=== PATIENT | female | born 1990 | race Caucasian/White ===

== ENCOUNTER 2016-10-19 10:38 | Emergency (ER) | payer OTHER ==
[2016-10-19] MEDS ORDERED: SODIUM CHLORIDE 0.9% 500 ML IV STA (11:12)
--- NOTE | 2016-10-19 11:29 | ED ---
General Adult HPI - General Chief complaint: Syncope Stated complaint: NUMBNESS, FALL, NEAR SYNCOPE 13 WKS PREG Time Seen by Provider: 10/19/16 11:11 Source: patient, RN notes reviewed Mode of arrival: wheelchair Limitations: no limitations - History of Present Illness Initial comments: This a 25 year old female presents emergency department for near syncopal episode. Patient states that she was at work became very hot flushed feeling states that she some television and fell back. Patient states she did not have any loss conscious did not have a head injury. Patient states she sat down and started feel better. Patient states she is concerned as this has happened twice in the last week only when she is at work. She states she does not drink much fluids. Patient is 13 weeks denies any abdominal pain including nausea, vomiting diarrhea constipation. Denies any vaginal bleeding or vaginal discharge. Patient states she has no complaints at this time denies any headache, blurred vision or any dizziness currently. - Related Data Home Medications Medication Instructions Recorded Confirmed Xle-Ybix-Usrdc Acid 1 cap PO HS 10/19/16 10/19/16 [-U Capsule (formulary)] Allergies Allergy/AdvReac Type Severity Reaction Status Date / Time Sulfa (Sulfonamide Allergy Rash/Hives Verified 10/19/16 11:14 Antibiotics) Review of Systems ROS Statement: Those systems with pertinent positive or pertinent negative responses have been documented in the HPI. ROS Other: All systems not noted in ROS Statement are negative. 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 Absent: scleral icterus, conjunctival injection, periorbital swelling ENT exam: Present: normal exam, normal oropharynx, mucous membranes moist Neck exam: Present: normal inspection, full ROM. Absent: tenderness, meningismus, lymphadenopathy Respiratory exam: Present: normal lung sounds bilaterally. Absent: respiratory distress, wheezes, rales, rhonchi, stridor Cardiovascular Exam: Present: regular rate, normal rhythm, normal heart sounds. Absent: systolic murmur, diastolic murmur, rubs, gallop, clicks GI/Abdominal exam: Present: soft, normal bowel sounds. Absent: distended, tenderness, guarding, rebound, rigid Neurological exam: Present: alert, oriented X3, CN II-XII intact Skin exam: Present: warm, dry, intact, normal color. Absent: rash Course Vital Signs 10/19/16 10:43 Temperature 99.6 F Pulse Rate 84 Respiratory 20 Rate Blood Pressure 133/62 O2 Sat by Pulse 100 Oximetry EKG Findings - EKG Comments: EKG Findings:: EKG performed at 11:27 normal sinus rhythm with a rate of 82 LA interval 140 QRS duration 82 QT/QTc 366/427 Medical Decision Making - Medical Decision Making 25-year-old female presented for near syncopal episode. Patient's blood work within normal limits there is some evidence of ketonuria and patient was given IV fluids. She states she does feel improved at this time. Patient will follow -up with her primary care physician and [employer] as directed. - Lab Data Result diagrams: 10/19/16 12:06 10/19/16 12:00 Lab Results 10/19/16 10/19/16 10/19/16 Range/Units 12:00 12:01 12:06 WBC 6.9 (3.8-10.6) k/uL RBC 4.00 (3.80-5.40) m/uL Hgb 12.4 (11.4-16.0) gm/dL Hct 36.4 (34.0-46.0) % MCV 90.9 (80.0-100.0) fL MCH 30.9 (25.0-35.0) pg MCHC 34.0 (31.0-37.0) g/dL RDW 12.9 (11.5-15.5) % Plt Count 192 (150-450) k/uL Neutrophils % 79 % Lymphocytes % 16 % Monocytes % 3 % Eosinophils % 0 % Basophils % 0 % Neutrophils # 5.5 (1.3-7.7) k/uL Lymphocytes # 1.1 (1.0-4.8) k/uL Monocytes # 0.2 (0-1.0) k/uL Eosinophils # 0.0 (0-0.7) k/uL Basophils # 0.0 (0-0.2) k/uL Sodium 139 (137-145) mmol/L Potassium 4.0 (3.5-5.1) mmol/L Chloride 104 (98-107) mmol/L Carbon Dioxide 22 (22-30) mmol/L Anion Gap 13 mmol/L BUN 9 (7-17) mg/dL Creatinine 0.52 (0.52-1.04) mg/dL Est GFR (MDRD) Af Amer >60 (>60 ml/min/1.73 sqM) Est GFR (MDRD) Non-Af >60 (>60 ml/min/1.73 sqM) Glucose 98 (74-99) mg/dL Calcium 9.8 (8.4-10.2) mg/dL Total Bilirubin 0.9 (0.2-1.3) mg/dL AST 32 (14-36) U/L ALT 44 (9-52) U/L Alkaline Phosphatase 35 L (38-126) U/L Total Protein 7.7 (6.3-8.2) g/dL Albumin 4.4 (3.5-5.0) g/dL Urine Color Light Yellow Urine Appearance Clear (Clear) Urine pH 6.0 (5.0-8.0) Ur Specific Hughson 1.010 (1.001-1.035) Urine Protein Negative (Negative) Urine Glucose (UA) 1+ H (Negative) Urine Ketones 2+ H (Negative) Urine Blood Negative (Negative) Urine Nitrite Negative (Negative) Urine Bilirubin Negative (Negative) Urine Urobilinogen <2.0 (<2.0) mg/dL Ur Leukocyte Esterase Negative (Negative) Disposition Clinical Impression: Near syncope, Dehydration Disposition: HOME SELF-CARE Condition: Stable Instructions: Near Syncope (ED) Additional Instructions: Please return to the Emergency Department if symptoms worsen or any other concerns. Time of Disposition: 13:01
[2016-10-19 12:26] LABS: Basophils % (A) 0 %; CH 31.1; CHCM 34.4; Eosinophils % (A) 0 %; HCT 36.4 % (34.0-46.0); HDW 2.65; HGB 12.4 gm/dL (11.4-16.0); Luc # (Auto) 0.07; Luc % (Auto) 1; Lymphocytes # (A) 1.1 k/uL (1.0-4.8); Lymphocytes % (A) 16 %; MCH 30.9 pg (25.0-35.0); MCV 90.9 fL (80.0-100.0); Monocytes # (A) 0.2 k/uL (0-1.0); Monocytes % (A) 3 %; Neutrophils # (A) 5.5 k/uL (1.3-7.7); Neutrophils % (A) 79 %; RDW 12.9 % (11.5-15.5); WBC 6.9 k/uL (3.8-10.6)
[2016-10-19 12:32] LABS: Appearance,Urine Clear (Clear); Bilirubin,Urine Negative (Negative); Glucose,Urine (UA) 1+ (Negative); Leukocyte Esterase,Urine Negative (Negative); Nitrite,Urine Negative (Negative); Protein,Urine Negative (Negative); UA Billing (MACRO vs. MICRO) CHEM; Urobilinogen,Urine <2.0 mg/dL (<2.0)
[2016-10-19 12:36] LABS: Ketones,Urine 2+ (Negative)
[2016-10-19 12:36] LABS: ALT 44 U/L (9-52); AST 32 U/L (14-36); Alkaline Phosphatase 35 U/L (38-126); Anion Gap 13 mmol/L; Blood Urea Nitrogen 9 mg/dL (7-17); Calcium 9.8 mg/dL (8.4-10.2); Carbon Dioxide 22 mmol/L (22-30); Chloride 104 mmol/L (98-107); Glucose 98 mg/dL (74-99); Non-African American GFR(MDRD) >60 (>60 ml/min/1.73 sqM); Sodium 139 mmol/L (137-145); Total Bilirubin 0.9 mg/dL (0.2-1.3); Total Protein 7.7 g/dL (6.3-8.2)
[2016-10-19] MEDS ORDERED: SODIUM CHLORIDE 0.9% 1,000 ML IV ONE (12:39)
[2016-10-19 13:23] VITALS: BP 120/64; PULSE 88; RESP 15; TEMP 97.6
== END 2016-10-19 13:40 | disposition home or self-care (01) ==
LOC: EC 10:38
DX: O99.281 Endocrine, nutritional and metabolic diseases complicating pregnancy, first trimester (principal); E86.0 Dehydration; O99.89 Other specified diseases and conditions complicating pregnancy, childbirth and the puerperium; R82.4 Acetonuria; Z79.899 Other long term (current) drug therapy; Z88.2 Allergy status to sulfonamides; Z3A.13 13 weeks gestation of pregnancy; W18.30XA Fall on same level, unspecified, initial encounter
CPT/HCPCS: 36415; 80053; 81003; 85025; 93005; 96360; 96361; 99284

== ENCOUNTER 2017-04-27 11:12 | Inpatient (IN) | payer OTHER ==
[2017-04-27] MEDS ORDERED: CITRIC ACID-SODIUM CITRATE 15 ML CUP PO ONE (11:48)
[2017-04-27 11:57] VITALS: BMI 34.6
[2017-04-27] MEDS: LACTATED RINGERS 1,000 ML IV SCH ×2 (12:00→17:09)
[2017-04-27 12:05] LABS: Basophils % (A) 0 %; CH 30.2; CHCM 33.8; Eosinophils # (A) 0.1 k/uL (0-0.7); Eosinophils % (A) 1 %; HCT 35.9 % (34.0-46.0); HDW 2.86; HGB 12.3 gm/dL (11.4-16.0); Luc # (Auto) 0.17; Luc % (Auto) 2; Lymphocytes # (A) 1.7 k/uL (1.0-4.8); Lymphocytes % (A) 18 %; MCH 30.7 pg (25.0-35.0); MCHC 34.1 g/dL (31.0-37.0); MCV 89.9 fL (80.0-100.0); Mean Platelet Volume 8.9; Monocytes # (A) 0.4 k/uL (0-1.0); Monocytes % (A) 4 %; Neutrophils # (A) 6.9 k/uL (1.3-7.7); Neutrophils % (A) 75 %; RBC 3.99 m/uL (3.80-5.40); RDW 14.7 % (11.5-15.5); WBC 9.2 k/uL (3.8-10.6); WBC (Perox) 9.49
[2017-04-27] MEDS ORDERED: MORPHINE SULFATE (PF) 0.3 MG/0.3 ML SYR ONE (12:31)
[2017-04-27] MEDS ORDERED: KETOROLAC 30 MG/ML 1 ML VIAL ONE (12:31)
[2017-04-27] MEDS ORDERED: DEXAMETHASONE SOD PHOS (MDV) 100 MG/10 ML VIAL ONE (12:31)
[2017-04-27] MEDS ORDERED: PHENYLEPHRINE-0.9% NACL SYG 1 MG/10 ML SYRINGE ONE (12:31)
[2017-04-27] MEDS ORDERED: OXYTOCIN 10 UNIT/ML 1 ML VIAL ONE (12:31)
[2017-04-27] MEDS ORDERED: ONDANSETRON 4 MG/2 ML VIAL ONE (12:31)
[2017-04-27] MEDS ORDERED: ONDANSETRON 4 MG/2 ML VIAL IVP PRN (13:02)
[2017-04-27] MEDS ORDERED: diphenhydrAMINE 50 MG/ML 1 ML VIAL IVP PRN ×3 (13:02→13:19)
[2017-04-27] MEDS ORDERED: NALOXONE 0.4 MG/ML 1 ML VIAL IV PRN (13:02)
[2017-04-27] MEDS ORDERED: MORPHINE SULFATE 4 MG/ML SYRINGE IVP PRN (13:02)
--- NOTE | 2017-04-27 13:16 | P.HPOB ---
History of Present Illness H&P Date: 04/27/17 Chief Complaint: IUP at 40-4/7 weeks, macrosomia This is a very pleasant 26-year-old 1 para 0 at 40-4/7 weeks. She had an ultrasound on Sunday yielding EFW 9 lbs. 2 oz. Normal amniotic fluid index. She came back to the office today for a nonstress test which was reactive in nature at that time given the size of the fetus we did discuss options for delivery induction versus primary patient elected primary section secondary to infant size. She notes good movement, no contractions, no loss of fluid. On blood work she she had a blood type of A+, rubella immune, RPR nonreactive, HIV V negative, hepatitis B surface antigen negative, she did pass her Glucola at 28 weeks, GBS positive. 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 History of Any Multi-Drug Resistant Organisms: None Reported Past Surgical History: Ablation Additional Past Surgical History / Comment(s): cardiac ablation 07/2008 Past Anesthesia/Blood Transfusion Reactions: No Reported Reaction Past Psychological History: No Psychological Hx Reported Smoking Status: Never smoker Past Alcohol Use History: None Reported, Rare Past Drug Use History: None Reported - Past Family History Sister(s) Additional Family Medical History / Comment(s): Lupus Medications and Allergies Home Medications Medication Instructions Recorded Confirmed Type Pvc-Yccp-Zufoq Acid 1 cap PO HS 10/19/16 10/19/16 History [-U Capsule (formulary)] Amoxicillin [Amoxicillin] 1 tab PO BID 04/27/17 04/27/17 History Allergies Allergy/AdvReac Type Severity Reaction Status Date / Time Sulfa (Sulfonamide Allergy Rash/Hives Verified 10/19/16 11:14 Antibiotics) Exam Osteopathic Statement: *. No significant issues noted on an osteopathic structural exam other than those noted in the History and Physical/Consult. - Vital Signs Vital signs: Vital Signs Temp Pulse Resp BP Pulse Ox 04/27/17 11:52 96.6 F L 103 H 18 134/90 98 Intake and Output 04/26/17 04/27/17 04/27/17 22:59 06:59 14:59 Other: Weight 94.347 kg Patient Weight 04/28/17 06:59 Weight 94.347 kg Results Result Diagrams: 04/27/17 11:37 Assessment and Plan (1) Term Current Visit: Yes Status: Acute Code(s): Z34.80 - ENCOUNTER FOR SUPRVSN OF NORMAL , UNSP TRIMESTER SNOMED Code(s): 54278124 (2) Macrosomia Narrative/Plan: Primary low transverse section. Current Visit: Yes Status: Acute Code(s): P08.0 - EXCEPTIONALLY LARGE BABY SNOMED Code(s): 21993812 (3) Positive GBS test Current Visit: Yes Status: Acute Code(s): B95.1 - STREPTOCOCCUS, GROUP B, CAUSING DISEASES CL[facility]SD [facility] SNOMED Code(s): 2061706686125
[2017-04-27] MEDS ORDERED: LANOLIN CREAM 5 GM TUBE TOPICAL PRN (13:19)
[2017-04-27] MEDS ORDERED: diphenhydrAMINE 50 MG CAP PO PRN (13:19)
[2017-04-27] MEDS ORDERED: METOCLOPRAMIDE 5 MG/ML 2 ML VIAL IVP PRN (13:19)
[2017-04-27] MEDS ORDERED: ZOLPIDEM 5 MG TAB PO PRN (13:19)
[2017-04-27] MEDS ORDERED: diphenhydrAMINE 25 MG CAP PO PRN (13:19)
[2017-04-27] MEDS ORDERED: ACETAMINOPHEN IV (For NPO) 1,000 MG in EMPTY BAG 1 BAG IVPB ONE (13:19)
[2017-04-27] MEDS ORDERED: ACETAMINOPHEN TAB 325 MG TAB PO PRN (13:19)
--- NOTE | 2017-04-27 13:19 | P.OP ---
Date of Procedure: 04/27/17 Preoperative Diagnosis: IUP at 40-4/7 weeks, macrosomia Postoperative Diagnosis: Same Procedure(s) Performed: Primary low transverse section Anesthesia: spinal Surgeon: Kelsi Kessler [employer] Carpenter #1: Sherine Lopez Estimated Blood Loss (ml): 600 IV fluids (ml): 1,000 Urine output (ml): 200 Pathology: other (Placenta) Condition: stable Disposition: observation Indications for Procedure: Given the elevated EFW of 9 lbs. 2 oz., patient elected primary section versus induction of labor. Operative Findings: Infant girl 9 lbs. 6 oz. delivered at 1245 Apgars of 7, 9 at one and 5 minutes respectively. Normal uterus tubes and ovaries were appreciated Description of Procedure: The patient was prepped and draped in the usual fashion after spinal anesthesia was administered by Dr. Mason. A Pfannenstiel incision was made and extended of the abdominal cavity without difficulty. The bladder peritoneum was elevated and incised and reflected distally. A 2 cm incision was made in the transverse plane of the lower uterine segment to enter the uterus at which time clear fluid was noted. The incision was extended in both directions . The head was encountered within the field and delivered up and through the incision where the nose and mouth were thoroughly suctioned. Remainder of the infant was delivered onto the surgical field where the cord was doubly clamped, cut, and the infant was passed for resuscitative measures with weight and Apgars as noted above. A segment of cord was then doubly clamped, cut, and set aside should cord gases become necessary. The placenta was delivered manually, intact, and was grossly normal with a grossly normal three-vessel cord. The uterus was exteriorized and the interior cavity of the uterus swept of any remaining placental and membranous fragments with a laparotomy sponge. The margins of the incision were grasped with allis clamps and the incision closed in 2 layers. First layer was a running locking layer of 0 vicryl from margin to margin followed by a second layer of imbricating 0 vicryl from margin to margin. Any small points of bleeding were then made hemostatic with the Bovie. Once hemostasis was achieved, the posterior cul-de-sac was suctioned with a guard and the uterine and ovarian findings are as noted above. The uterus was replaced within the abdominal cavity and the gutters swept of any remaining blood fluid or clot. The incision was again reexamined and hemostasis was noted to be excellent. Any small point of bleeding were made hemostatic with the Bovie. Once hemostasis was achieved the parietal peritoneum was loosely reapproximated. The layer of muscles were examined and made hemostatic with the Bovie. Attention was then turned to the fascia which was closed with 2 running stitches of 0 Vicryl proceeding from the lateral margins to the midpoint. The subcutaneous tissues were irrigated, made hemostatic with the Bovie, and reapproximated with a running stitch of 3-0 vicryl. The skin was reapproximated with 4-0 vicryl. Estimated blood loss for the case was approximately 600 mL. All sponge instrument and needle counts are correct. There were no complications. The patient tolerated the procedure well and proceeded to the recovery room in stable condition. Both mother and are resting comfortably in recovery.
[2017-04-27] MEDS ORDERED: OXYTOCIN 20 UNITS/1000 ML NS 1,000 ML IV SCH (13:30)
[2017-04-27] MEDS: ceFAZolin IN SWFI 2 GM/20 ML SYRINGE IVP SCH (18:30)
[2017-04-27] MEDS: SENNOSIDES-DOCUSATE SODIUM 1 EACH TAB PO SCH (22:47)
[2017-04-28] MEDS: IBUPROFEN IV 800 MG in SODIUM CHLORIDE 0.9% 250 ML IV SCH ×3 (00:36→20:55)
[2017-04-28] MEDS: ceFAZolin IN SWFI 2 GM/20 ML SYRINGE IVP SCH (02:25)
[2017-04-28] MEDS: HYDROcodone/APAP 5-325MG 1 EACH TAB PO PRN ×4 (05:03→22:58)
[2017-04-28 07:53] LABS: Basophils % (A) 0 %; CH 30.6; Eosinophils % (A) 0 %; HCT 29.8 % (34.0-46.0); HDW 2.74; Luc # (Auto) 0.15; Luc % (Auto) 2; Lymphocytes # (A) 1.7 k/uL (1.0-4.8); Lymphocytes % (A) 19 %; MCH 30.2 pg (25.0-35.0); MCHC 32.4 g/dL (31.0-37.0); MCV 93.3 fL (80.0-100.0); Mean Platelet Volume 9.3; Monocytes # (A) 0.4 k/uL (0-1.0); Monocytes % (A) 5 %; Neutrophils # (A) 6.6 k/uL (1.3-7.7); Neutrophils % (A) 74 %; RBC 3.19 m/uL (3.80-5.40); RDW 15.1 % (11.5-15.5); WBC 8.9 k/uL (3.8-10.6); WBC (Perox) 9.33
[2017-04-28 07:58] LABS: HGB 9.7 gm/dL (11.4-16.0)
[2017-04-28] MEDS: SENNOSIDES-DOCUSATE SODIUM 1 EACH TAB PO SCH ×2 (08:01→20:29)
--- NOTE | 2017-04-28 10:41 | P.PNOBGPC ---
Subjective - Subjective Interval history: postop day 1. Feeling very well. Voiding without difficulty. Patient reports: Reports appetite normal, Reports voiding normally, Reports pain well controlled, Reports ambulating normally, Denies dizzy ambulation, Denies nauseated : doing well Objective - Vital Signs Latest vital signs: Vital Signs Temp Pulse Resp BP Pulse Ox 04/28/17 07:52 97.8 F 91 16 122/73 04/28/17 07:50 16 04/28/17 06:00 16 98 04/28/17 04:00 98.0 F 69 16 112/69 100 04/28/17 02:00 16 98 04/28/17 00:00 97.7 F 77 16 100/62 98 04/27/17 22:00 16 97 04/27/17 20:00 97.9 F 77 18 117/73 97 04/27/17 16:00 98.5 F 84 16 120/73 100 04/27/17 14:58 98.4 F 82 16 125/80 99 04/27/17 14:27 84 16 135/63 99 04/27/17 14:05 98.6 F 77 16 115/66 100 04/27/17 14:02 75 16 115/66 100 04/27/17 13:50 77 16 115/66 100 04/27/17 13:35 76 16 120/67 100 04/27/17 13:20 96.5 F L 79 16 98/62 99 04/27/17 13:15 96.5 F L 92 16 92/53 99 04/27/17 13:02 99 04/27/17 11:52 96.6 F L 103 H 18 134/90 98 Intake and Output 04/27/17 04/28/17 04/28/17 22:59 06:59 14:59 Output Total 500 500 Balance -500 -500 Output: Urine 500 500 - Exam Extremities: Present: normal, edema Abdomen: Present: normal appearance, soft. Absent: distention Incision: Present: normal, dry, intact. Absent: erythematous Uterus: Present: normal, firm. Absent: tenderness - Labs Labs: Abnormal Lab Results - Last 24 Hours (Table) 04/28/17 Range/Units 06:58 RBC 3.19 L (3.80-5.40) m/uL Hgb 9.7 L D (11.4-16.0) gm/dL Hct 29.8 L (34.0-46.0) % Assessment and Plan (1) Macrosomia Current Visit: Yes Status: Acute Code(s): P08.0 - EXCEPTIONALLY LARGE BABY SNOMED Code(s): 02073230 (2) Positive GBS test Current Visit: Yes Status: Acute Code(s): B95.1 - STREPTOCOCCUS, GROUP B, [facility] Code(s): 9888839452168 (3) Term Current Visit: Yes Status: Acute Code(s): Z34.80 - ENCOUNTER FOR SUPRVSN OF NORMAL , UNSP TRIMESTER SNOMED Code(s): 54879067 (4) S/P section Narrative/Plan: postop day 1 status post primary low transverse section secondary to macrosomia. She is recovering well. Routine care. Current Visit: Yes Status: Acute Code(s): Z98.891 - HISTORY OF UTERINE SCAR FROM PREVIOUS SURGERY SNOMED Code(s): 014089979
--- NOTE | 2017-04-28 14:31 | P.PN ---
Progress Note - Text Progress Note Date: 04/28/17 This is a 26-year-old female postop day #1 status post with a spinal anesthesia and intrathecal Duramorph. The patient's pain is well controlled she did have pruritus however it is getting better. The patient denies any paresthesia in the lower extremities or any weakness and she is able to ambulate without assistance.
[2017-04-28] MEDS: IBUPROFEN 600 MG TAB PO PRN ×2 (15:07→20:28)
[2017-04-28] MEDS: LACTATED RINGERS 1,000 ML IV SCH ×3 (20:54→20:55)
[2017-04-28] MEDS: PRENATAL VIT-IRON-FOLIC ACID 1 EACH CAP PO SCH (20:56)
[2017-04-28] MEDS: SIMETHICONE 80 MG CHEWABLE PO PRN (23:02)
[2017-04-29] MEDS: LACTATED RINGERS 1,000 ML IV SCH (00:46)
[2017-04-29] MEDS: PRENATAL VIT-IRON-FOLIC ACID 1 EACH CAP PO SCH ×2 (00:46→09:34)
[2017-04-29] MEDS: IBUPROFEN 600 MG TAB PO PRN ×3 (03:21→20:32)
[2017-04-29] MEDS: SENNOSIDES-DOCUSATE SODIUM 1 EACH TAB PO SCH ×2 (08:09→20:32)
[2017-04-29] MEDS: HYDROcodone/APAP 5-325MG 1 EACH TAB PO PRN ×2 (09:33→16:34)
--- NOTE | 2017-04-29 10:23 | P.PNOBGPC ---
Subjective - Subjective Interval history: Still struggling somewhat with breast-feeding Patient reports: Reports appetite normal, Reports voiding normally, Reports pain well controlled, Reports ambulating normally, Denies nauseated : doing well, nursing well Objective - Vital Signs Latest vital signs: Vital Signs Temp Pulse Resp BP 04/29/17 08:00 97.9 F 77 16 114/75 04/29/17 00:00 98 F 86 15 128/81 04/28/17 16:00 97.4 F L 86 16 118/70 04/28/17 11:56 98.4 F 99 16 130/63 - Exam Extremities: Present: normal, edema Abdomen: Present: normal appearance, soft, tenderness. Absent: distention Incision: Present: normal, dry, intact. Absent: erythematous Uterus: Present: normal, firm Assessment and Plan (1) Macrosomia Current Visit: Yes Status: Acute Code(s): P08.0 - EXCEPTIONALLY LARGE BABY SNOMED Code(s): 34496148 (2) Positive GBS test Current Visit: Yes Status: Acute Code(s): B95.1 - STREPTOCOCCUS, GROUP B, CAUSING DISEASES CLASSD [facility] SNOMED Code(s): 2320528861520 (3) Term Current Visit: Yes Status: Acute Code(s): Z34.80 - ENCOUNTER FOR SUPRVSN OF NORMAL , UNSP TRIMESTER SNOMED Code(s): 50769700 (4) S/P section Current Visit: Yes Status: Acute Code(s): Z98.891 - HISTORY OF UTERINE SCAR FROM PREVIOUS SURGERY SNOMED Code(s): 808996018 Plan: Postop day 2 status post primary low transverse section for macrosomia. She is recovering well. Probable discharge home tomorrow.
[2017-04-29] MEDS: SIMETHICONE 80 MG CHEWABLE PO PRN (13:43)
[2017-04-30 00:59] VITALS: PULSE 86
[2017-04-30] MEDS: HYDROcodone/APAP 5-325MG 1 EACH TAB PO PRN (03:12)
[2017-04-30] MEDS: IBUPROFEN 600 MG TAB PO PRN (06:15)
--- NOTE | 2017-04-30 08:37 | P.DS ---
Providers Date of admission: 04/27/17 11:12 Expected date of discharge: 04/30/17 Attending physician: Kelsi Kessler - Discharge Diagnosis(es) (1) Term Current Visit: Yes Status: Acute (2) Macrosomia This very pleasant 26-year-old 1 para 0 at 40-4/7 weeks presented to labor and delivery on Friday 04/27 for primary secondary to macrosomia. Patient's was measuring over 4100 g on counseling patient elective primary versus elective induction at this time. was performed without difficulty and patient's postoperative course has been benign. On this postop day 3, she is ambulatory and voiding without difficulty , she is tolerating a regular diet, her milk came in last night and she is feeling well. Her pain is controlled with oral medications. She denies any concerns and wishes discharge Current Visit: Yes Status: Acute (3) Positive GBS test Current Visit: Yes Status: Acute Plan - Discharge Summary Discharge Rx Participant: No New Discharge Prescriptions: No Action Yep-Aodh-Qwcyg Acid [-U Capsule (formulary)] 1 cap PO HS Amoxicillin [Amoxicillin] 1 tab PO BID Discharge Medication List Ile-Wxme-Tnple Acid [-U Capsule (formulary)] 1 cap PO HS [History] Amoxicillin [Amoxicillin] 1 tab PO BID 04/27/17 [History] Follow up Appointment(s)/Referral(s): Kelsi Kessler DO [Doctor of Osteopathic Medicine] - 1 Week Patient Instructions/Handouts: (DC) Discharge Disposition: HOME SELF-CARE
[2017-04-30] MEDS: SENNOSIDES-DOCUSATE SODIUM 1 EACH TAB PO SCH (09:50)
[2017-04-30 11:02] VITALS: BP 136/77; RESP 18; TEMP 98.2
== END 2017-04-30 12:00 | disposition home or self-care (01) | DRG 540 ==
LOC: 4FBP 11:12
PROVIDERS: ADMIT Obstetrics & Gynecology Obstetrics; ATTEND Obstetrics & Gynecology Obstetrics
PROC: 10D00Z1 Extraction of Products of Conception, Low, Open Approach (ICD-10-PCS; principal; 2017-04-27 12:30)
DX: O36.63X0 Maternal care for excessive fetal growth, third trimester, not applicable or unspecified (principal); O48.0 Post-term pregnancy; Z37.0 Single live birth; O99.824 Streptococcus B carrier state complicating childbirth; Z3A.40 40 weeks gestation of pregnancy; Z88.2 Allergy status to sulfonamides; L29.9 Pruritus, unspecified
CPT/HCPCS: 85025; 86850; 86900; 86901; 88307

== ENCOUNTER → 2018-08-26 | Outpatient (CLI) | payer OTHER ==
--- NOTE | 2018-08-26 13:00 | ECHOF ---
Referral Reason:R55 syncope and collapse MEASUREMENTS -------- HEIGHT: 170.2 cm WEIGHT: 78.0 kg BP: RVIDd: 2.5 cm (< 3.3) IVSd: 0.8 cm (0.6 - 1.1) LVIDd: 4.2 cm (3.9 - 5.3) LVPWd: 1.0 cm (0.6 - 1.1) IVSs: 1.1 cm LVIDs: 3.5 cm LVPWs: 0.8 cm LAESV Index (A-L): 17.44 ml/m Ao Diam: 2.3 cm (2.0 - 3.7) AV Cusp: 1.9 cm (1.5 - 2.6) LA Diam: 3.4 cm (2.7 - 3.8) EPSS: 0.3 cm MV E Brian: 0.75 m/s MV DecT: 176 ms MV A Brian: 0.67 m/s MV E/A Ratio: 1.12 RAP: 5.00 mmHg RVSP: 12.85 mmHg MV EF SLOPE: 112.53 mm/s (70 - 150) MV EXCURSION: 1.74 cm (> 18.000) FINDINGS -------- Sinus rhythm. This was a technically good study. LV size, wall thickness and systolic function are normal, with an EF greater than 55%. The left katharine tricular size is normal. The right ventricle is normal in size. The left atrial size is normal. Normal LA size by volume 22+/-6 ml/m2. The right atrial size is normal. The aortic valve is trileaflet, and appears structurally normal. No aortic stenosis or regurgitation. The mitral valve is normal. There is trace mitral regurgitation. Trace tricuspid regurgitation present. There is no evidence of pulmonary hypertension. The right ventricular systolic pressure, as measured by Doppler, is 12.85mmHg. Trace/mild (physiologic) pulmonic regurgitation. The aortic root size is normal. There is no pericardial effusion. CONCLUSIONS -------- 1. Sinus rhythm. 2. This was a technically good study. 3. LV size, wall thickness and systolic function are normal, with an EF greater than 55%. 4. The left atrial size is normal. 5. The aortic valve is trileaflet, and appears structurally normal. No aortic stenosis or regurgitati on. 6. There is trace mitral regurgitation. 7. Trace tricuspid regurgitation present. 8. There is no evidence of pulmonary hypertension. 9. Trace/mild (physiologic) pulmonic regurgitation. 10. The aortic root size is normal. 11. There is no pericardial effusion. REPRODUCTION ORDER PROCESSOR: SAL Olivera
== END | disposition home or self-care (01) ==
LOC: RADECHMAIN 11:12
PROVIDERS: ATTEND Family Medicine
DX: R55 Syncope and collapse (principal)
CPT/HCPCS: 93270; 93271; 93306

== ENCOUNTER → 2018-09-25 | Outpatient (CLI) | payer OTHER | END | disposition home or self-care (01) | LOC: RADECHMAIN 11:44 | PROVIDERS: ATTEND Family Medicine | DX: Z53.9 Procedure and treatment not carried out, unspecified reason (principal) | CPT/HCPCS: 93270 ==

== ENCOUNTER 2018-10-10 11:54 | Day surgery (SDC) | payer OTHER ==
[2018-10-08 11:58] VITALS: BMI 29.0
[~2018-10-10 11:54] MED LIST: SODIUM CHLORIDE 0.9% 1,000 ML IV SCH
[2018-10-10 12:40] VITALS: BP 116/89; PULSE 94; RESP 20; TEMP 99.3
[2018-10-10] MEDS ORDERED: IV FLUID CONTINUATION 450 ML IV ONE (14:16)
--- NOTE | 2018-10-10 15:38 | P.PCN ---
Preoperative Diagnosis: Diagnosis Presyncope dizziness lightheadedness nausea chest tightness Twelve-lead ECG shows sinus rhythm normal MO narrow QRS normal ST segments no delta waves Tilt table test for protocol Baseline blood pressure 115/69 mmHg Baseline heart rate 83 beats a minute Patient was tilted upright and I'll of 70 per protocol he was in immediate increase in her heart rate to 120 beats a minute and then it settled down drain 110 20 beats a minute for the next 10-15 minutes By 30 minutes a heart rate increased 136 beats a minute Sotalol the test she complained of being lightheaded nauseous with chest tightness, legs feeling numb, feeling warm and flushed and felt that the heart was racing When she was laid supine her blood pressure was 150/60 mmHg heart rate dropped down to 87 beats a minute once again Impression Normal twelve-lead ECG no delta waves Orthostatic intolerance
== END 2018-10-10 15:38 | disposition home or self-care (01) ==
LOC: CATHEP 11:54
PROVIDERS: ATTEND Internal Medicine Clinical Cardiac Electrophysiology
DX: R55 Syncope and collapse (principal); R42 Dizziness and giddiness; Z88.2 Allergy status to sulfonamides; I45.6 Pre-excitation syndrome
CPT/HCPCS: 81025; 93660

== ENCOUNTER 2018-11-22 20:15 | Emergency (ER) | payer OTHER ==
[2018-11-22 20:31] VITALS: RESP 18
--- NOTE | 2018-11-22 21:57 | XR ---
EXAMINATION TYPE: XR chest 2V DATE OF EXAM: 11/22/2018 COMPARISON: 09/29/2015 HISTORY: Dizziness and chest pain TECHNIQUE: Frontal and lateral views of the chest are obtained. FINDINGS: Heart and mediastinum are normal. Lungs are clear. Diaphragm is normal. Bony thorax appear s normal. IMPRESSION: Normal chest. No change.
[2018-11-22 22:56] LABS: ALT 15 U/L (9-52); AST 18 U/L (14-36); Albumin 4.7 g/dL (3.5-5.0); Alkaline Phosphatase 68 U/L (38-126); Anion Gap 9 mmol/L; Blood Urea Nitrogen 12 mg/dL (7-17); Calcium 9.7 mg/dL (8.4-10.2); Carbon Dioxide 24 mmol/L (22-30); Chloride 109 mmol/L (98-107); Glucose 103 mg/dL (74-99); Potassium 4.3 mmol/L (3.5-5.1); Sodium 142 mmol/L (137-145); Total Protein 7.6 g/dL (6.3-8.2)
[2018-11-22 22:58] LABS: Basophils % (A) 0 %; Eosinophils # (A) 0.1 k/uL (0-0.7); Eosinophils % (A) 1 %; HCT 40.6 % (34.0-46.0); HGB 13.4 gm/dL (11.4-16.0); Lymphocytes # (A) 1.3 k/uL (1.0-4.8); Lymphocytes % (A) 18 %; MCH 29.2 pg (25.0-35.0); MCV 88.5 fL (80.0-100.0); Mean Platelet Volume 7.5; Monocytes # (A) 0.3 k/uL (0-1.0); Monocytes % (A) 4 %; Neutrophils # (A) 5.2 k/uL (1.3-7.7); Neutrophils % (A) 75 %; Platelet Count 209 k/uL (150-450); RBC 4.59 m/uL (3.80-5.40); RDW 12.3 % (11.5-15.5); WBC 6.9 k/uL (3.8-10.6)
[2018-11-22 22:59] LABS: Appearance,Urine Clear (Clear); Bilirubin,Urine Negative (Negative); Blood,Urine Negative (Negative); Color,Urine Yellow; Glucose,Urine (UA) Negative (Negative); Ketones,Urine Negative (Negative); Leukocyte Esterase,Urine Negative (Negative); Nitrite,Urine Negative (Negative); Protein,Urine Negative (Negative); Specific Gravity,Urine 1.019 (1.001-1.035); Urobilinogen,Urine <2.0 mg/dL (<2.0)
--- NOTE | 2018-11-22 23:38 | ED ---
General Adult HPI - General Chief complaint: Chest Pain Stated complaint: poss med reaction,heart racing,chest pain,weak Time Seen by Provider: 11/22/18 21:15 Source: patient, RN notes reviewed, old records reviewed Mode of arrival: wheelchair Limitations: no limitations - History of Present Illness Initial comments: 27-year-old female patient with reported history of "orthostatic intolerance" possible POTS presents ED with complaint of chest pain. Patient port site for approximately 6 months she has had a baseline on her left parasternal region. She reports that she has had extensive investigations for this complaint including Holter monitor. Patient does follow with cardiology and was placed on a beta neri for A appears to be postural orthostatic tachycardia syndrome. Patient worsens starting a beta neri feels as if she has decreased energy. Patient also complains of her baseline chest pain. He states that this is not significant different from the prior complaints that she has been experiencing a database the last 6 months. Patient states that she cannot be . Patient denies any other complaints at this time. Systemic: Pt denies fatigue, fever/chills, rash. Pt denies weakness, night sweats, weight loss. Neuro: Pt denies headache, visual disturbances, syncope or pre-syncope. HEENT: Pt denies ocular discharge or irritation, otalgia, rhinorrhea, pharyngitis or notable lymphadenopathy. Cardiopulmonary: Pt denies SOB, heart palpitations, dyspnea on exertion. Abdominal/GI: Pt denies abdominal pain, n/v/d. : Pt denies dysuria, burning w/ urination, frequency/urgency. Denies new onset urinary or bowel incontinence. MSK: Pt denies myalgia, loss of strength or function in extremities. Neuro: Pt denies new onset weakness, paresthesias. - Related Data Home Medications Medication Instructions Recorded Confirmed Medroxyprogesterone Acetate 150 mg IM Q90D 10/08/18 10/10/18 [Depo-Provera] Allergies Allergy/AdvReac Type Severity Reaction Status Date / Time Sulfa (Sulfonamide Allergy Rash/Hives Verified 11/22/18 20:31 Antibiotics) Review of Systems ROS Statement: Those systems with pertinent positive or pertinent negative responses have been documented in the HPI. ROS Other: All systems not noted in ROS Statement are negative. 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 orthostatic intolerance History of Any Multi-Drug Resistant Organisms: None Reported Past Surgical History: Cardiac Ablation, Section Additional Past Surgical History / Comment(s): cardiac ablation 07/2008 Past Anesthesia/Blood Transfusion Reactions: Motion Sickness Past Psychological History: Anxiety Smoking Status: Never smoker Past Alcohol Use History: None Reported Past Drug Use History: None Reported - Past Family History Sister(s) Additional Family Medical History / Comment(s): Lupus General Exam - General Exam Comments Initial Comments: Constitutional: NAD, AOX3, Pt has pleasant affect. HEENT: NC/AT, trachea midline, neck supple, no lymphadenopathy. Posterior pharynx non erythematous, without exudates. External ears appear normal, without discharge. Mucous membranes moist. Eyes PERRLA, EOM intact. There is no scleral icterus. No pallor noted. Cardiopulmonary: RRR, no murmurs, rubs or gallops, no JVD noted. Lungs CTAB in anterior and posterior fox. No peripheral edema. Abdominal exam: Abdomen soft and non-distended. Abdomen non-tender to palpation in all 4 quadrants. Bowel sounds active in LLQ. No hepatosplenomegaly. No ecchymosis Neuro: CN II-XII grossly intact. No nuchal rigidity. No raccon eyes, no hale sign, no hemotympanum. No cervical spinal tenderness. MSK: No posterior calf tenderness bilaterally, homans sign negative bilaterally. Posterior tibialis and radial pulse +2 bilaterally. Sensation intact in upper and lower extremities. Full active ROM in upper and lower extremities, 5/5 stregnth. Limitations: no limitations Course Vital Signs 11/22/18 11/22/18 11/22/18 20:27 22:35 23:49 Temperature 98.8 F 98.1 F Pulse Rate 111 H 91 98 Respiratory 18 18 18 Rate Blood Pressure 120/75 122/71 120/70 O2 Sat by Pulse 98 99 100 Oximetry Medical Decision Making - Medical Decision Making 27-year-old female patient with reported history of "orthostatic intolerance" possible POTS presents ED with complaint of chest pain. Patient port site for approximately 6 months she has had a baseline on her left parasternal region. She reports that she has had extensive investigations for this complaint including Holter monitor. Patient does follow with cardiology and was placed on a beta neri for A appears to be postural orthostatic tachycardia syndrome. Patient worsens starting a beta neri feels as if she has decreased energy. Patient also complains of her baseline chest pain. He states that this is not significant different from the prior complaints that she has been experiencing a database the last 6 months. Patient states that she cannot be . Patient denies any other complaints at this time. Patient also stable, afebrile. Physical exam didn't display acute pathology. Laboratory investigation. Impressive CBC, CMP, UA. HCG negative. D-dimer negative. Troponin negative. EKG not concerning for acute ischemia. Patient had beta neri switched to Cardizem by finishing machine tender. Patient will begin taking that medication tomorrow. She'll follow-up with finishing machine tender and primary care provider 1-2 days. Patient return if patient worsens. Case discussed with Dr. Wills. - Lab Data Result diagrams: 11/22/18 22:30 11/22/18 22:30 Lab Results 11/22/18 11/22/18 11/22/18 Range/Units 22:30 22:30 22:30 WBC 6.9 (3.8-10.6) k/uL RBC 4.59 (3.80-5.40) m/uL Hgb 13.4 (11.4-16.0) gm/dL Hct 40.6 (34.0-46.0) % MCV 88.5 (80.0-100.0) fL MCH 29.2 (25.0-35.0) pg MCHC 33.0 (31.0-37.0) g/dL RDW 12.3 (11.5-15.5) % Plt Count 209 (150-450) k/uL Neutrophils % 75 % Lymphocytes % 18 % Monocytes % 4 % Eosinophils % 1 % Basophils % 0 % Neutrophils # 5.2 (1.3-7.7) k/uL Lymphocytes # 1.3 (1.0-4.8) k/uL Monocytes # 0.3 (0-1.0) k/uL Eosinophils # 0.1 (0-0.7) k/uL Basophils # 0.0 (0-0.2) k/uL D-Dimer 0.21 (<0.60) mg/L FEU Sodium 142 (137-145) mmol/L Potassium 4.3 (3.5-5.1) mmol/L Chloride 109 H (98-107) mmol/L Carbon Dioxide 24 (22-30) mmol/L Anion Gap 9 mmol/L BUN 12 (7-17) mg/dL Creatinine 0.69 (0.52-1.04) mg/dL Est GFR (CKD-EPI)AfAm >90 (>60 ml/min/1.73 sqM) Est GFR (CKD-EPI)NonAf >90 (>60 ml/min/1.73 sqM) Glucose 103 H (74-99) mg/dL Calcium 9.7 (8.4-10.2) mg/dL Total Bilirubin 1.0 (0.2-1.3) mg/dL AST 18 (14-36) U/L ALT 15 (9-52) U/L Alkaline Phosphatase 68 (38-126) U/L Troponin I (0.000-0.034) ng/mL Total Protein 7.6 (6.3-8.2) g/dL Albumin 4.7 (3.5-5.0) g/dL Urine Color Urine Appearance (Clear) Urine pH (5.0-8.0) Ur Specific [place] (1.001-1.035) Urine Protein (Negative) Urine Glucose (UA) (Negative) Urine Ketones (Negative) Urine Blood (Negative) Urine Nitrite (Negative) Urine Bilirubin (Negative) Urine Urobilinogen (<2.0) mg/dL Ur Leukocyte Esterase (Negative) Urine HCG, Qual (Not Detectd) 11/22/18 11/22/18 11/22/18 Range/Units 22:30 22:30 22:30 WBC (3.8-10.6) k/uL RBC (3.80-5.40) m/uL Hgb (11.4-16.0) gm/dL Hct (34.0-46.0) % MCV (80.0-100.0) fL MCH (25.0-35.0) pg MCHC (31.0-37.0) g/dL RDW (11.5-15.5) % Plt Count (150-450) k/uL Neutrophils % % Lymphocytes % % Monocytes % % Eosinophils % % Basophils % % Neutrophils # (1.3-7.7) k/uL Lymphocytes # (1.0-4.8) k/uL Monocytes # (0-1.0) k/uL Eosinophils # (0-0.7) k/uL Basophils # (0-0.2) k/uL D-Dimer (<0.60) mg/L FEU Sodium (137-145) mmol/L Potassium (3.5-5.1) mmol/L Chloride (98-107) mmol/L Carbon Dioxide (22-30) mmol/L Anion Gap mmol/L BUN (7-17) mg/dL Creatinine (0.52-1.04) mg/dL Est GFR (CKD-EPI)AfAm (>60 ml/min/1.73 sqM) Est GFR (CKD-EPI)NonAf (>60 ml/min/1.73 sqM) Glucose (74-99) mg/dL Calcium (8.4-10.2) mg/dL Total Bilirubin (0.2-1.3) mg/dL AST (14-36) U/L ALT (9-52) U/L Alkaline Phosphatase (38-126) U/L Troponin I <0.012 (0.000-0.034) ng/mL Total Protein (6.3-8.2) g/dL Albumin (3.5-5.0) g/dL Urine Color Yellow Urine Appearance Clear (Clear) Urine pH 6.0 (5.0-8.0) Ur Specific [place] 1.019 (1.001-1.035) Urine Protein Negative (Negative) Urine Glucose (UA) Negative (Negative) Urine Ketones Negative (Negative) Urine Blood Negative (Negative) Urine Nitrite Negative (Negative) Urine Bilirubin Negative (Negative) Urine Urobilinogen <2.0 (<2.0) mg/dL Ur Leukocyte Esterase Negative (Negative) Urine HCG, Qual Not Detected (Not Detectd) - EKG Data -: EKG Interpreted by Md EKG Comments: Ventricular rate 93, AL interval 126, QRS 86, QT/QTc a 42/425. Normal sinus rhythm, normal EKG. No concern for acute ischemia. Disposition Clinical Impression: Atypical chest pain Disposition: HOME SELF-CARE Condition: Stable Instructions (If sedation given, give patient instructions): Chest Pain (ED) Additional Instructions: Patient to adhere to previously discussed treatment plan and will take medication(s) as directed. Patient to follow up with PCP in 1-2 days. Patient to return to ED if symptoms do not improve. Follow-up with finishing machine tender and primary care provider in 1-2 days. Return to ED if condition worsens in anyway. Is patient prescribed a controlled substance at d/c from ED?: No Referrals: Denzel Haney DO [Primary Care Provider] - 1-2 days
[2018-11-22 23:50] VITALS: BP 120/70; PULSE 98; TEMP 98.1
== END 2018-11-22 23:50 | disposition home or self-care (01) ==
LOC: EC 20:15
DX: R07.89 Other chest pain (principal); Z88.2 Allergy status to sulfonamides; Z79.3 Long term (current) use of hormonal contraceptives; Z86.79 Personal history of other diseases of the circulatory system; Z98.890 Other specified postprocedural states
CPT/HCPCS: 36415; 71046; 80053; 81003; 81025; 84484; 85025; 85379; 99285

== ENCOUNTER 2021-05-16 17:38 | Emergency (ER) | payer OTHER ==
[2021-05-16 21:01] VITALS: BP 159/87; PULSE 82; RESP 18; TEMP 98.5
--- NOTE | 2021-05-16 21:03 | ED ---
Abdominal Pain HPI - General Source: patient <Rachael Charles - Last Filed: 05/16/21 21:05> <Buck Urbina - Last Filed: 05/17/21 02:27> - General Stated Complaint: 16 wks preg, possible appendicitis Time Seen by Provider: 05/16/21 21:00 - History of Present Illness Initial Comments: 30 year-old female patient presents for evaluation of right lower quadrant pain that started this morning and has been worsening throughout the day. Patient is 16 weeks . Denies vaginal bleeding or discharge. Denies any hematuria, dysuria, urinary frequency or urgency. Denies fever or chills. Did go to urgent care and had negative UA. Did feel nauseated. Denies vomiting. Denies constipation or diarrhea. 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 Did have c- section no other abdominal surgeries. (Rachael Charles) - Related Data Home Medications Medication Instructions Recorded Confirmed Medroxyprogesterone Acetate 150 mg IM Q90D 10/08/18 10/10/18 [Depo-Provera] Allergies Allergy/AdvReac Type Severity Reaction Status Date / Time Sulfa (Sulfonamide Allergy Rash/Hives Verified 05/16/21 21:01 Antibiotics) Review of Systems ROS Other: All systems not noted in ROS Statement are negative. <Rachael Charles - Last Filed: 05/16/21 21:05> ROS Other: All systems not noted in ROS Statement are negative. <Buck Urbina - Last Filed: 05/17/21 02:27> ROS Statement: Those systems with pertinent positive or pertinent negative responses have been documented in the HPI. 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 orthostatic intolerance History of Any Multi-Drug Resistant Organisms: None Reported Past Surgical History: Cardiac Ablation, Section Additional Past Surgical History / Comment(s): cardiac ablation 07/2008 Past Anesthesia/Blood Transfusion Reactions: Motion Sickness Past Psychological History: Anxiety Past Alcohol Use History: None Reported Past Drug Use History: None Reported - Past Family History Sister(s) Additional Family Medical History / Comment(s): Lupus <Rachael Charles - Last Filed: 05/16/21 21:05> General Exam General appearance: alert, in no apparent distress, other (This is a well- nourished adult female in mild distress related to pain.) Respiratory exam: Present: normal lung sounds bilaterally. Absent: respiratory distress, wheezes, rales, rhonchi, stridor Cardiovascular Exam: Present: regular rate, normal rhythm, normal heart sounds. Absent: systolic murmur, diastolic murmur, rubs, gallop, clicks GI/Abdominal exam: Present: soft, tenderness (Right lower quadrant), normal bowel sounds. Absent: distended, guarding, rebound, rigid Neurological exam: Present: alert, oriented X3, CN II-XII intact Psychiatric exam: Present: normal affect, normal mood Skin exam: Present: warm, dry, intact, normal color. Absent: rash <Rachael Charles - Last Filed: 05/16/21 21:05> Course Vital Signs 05/16/21 20:58 Temperature 98.5 F Pulse Rate 82 Respiratory 18 Rate Blood Pressure 159/87 O2 Sat by Pulse 100 Oximetry Medical Decision Making - Lab Data Result diagrams: 05/16/21 21:43 05/16/21 21:43 <Buck Urbina - Last Filed: 05/17/21 02:27> - Lab Data Lab Results 05/16/21 05/16/21 05/16/21 Range/Units 21:43 21:43 21:43 WBC 7.5 (3.8-10.6) k/uL RBC 3.90 (3.80-5.40) m/uL Hgb 12.0 (11.4-16.0) gm/dL Hct 34.4 (34.0-46.0) % MCV 88.2 (80.0-100.0) fL MCH 30.7 (25.0-35.0) pg MCHC 34.8 (31.0-37.0) g/dL RDW 12.8 (11.5-15.5) % Plt Count 172 (150-450) k/uL MPV 8.5 Neutrophils % 73 % Lymphocytes % 20 % Monocytes % 4 % Eosinophils % 1 % Basophils % 0 % Neutrophils # 5.5 (1.3-7.7) k/uL Lymphocytes # 1.5 (1.0-4.8) k/uL Monocytes # 0.3 (0-1.0) k/uL Eosinophils # 0.1 (0-0.7) k/uL Basophils # 0.0 (0-0.2) k/uL Sodium 135 L (137-145) mmol/L Potassium 3.6 (3.5-5.1) mmol/L Chloride 105 (98-107) mmol/L Carbon Dioxide 23 (22-30) mmol/L Anion Gap 7 mmol/L BUN 10 (7-17) mg/dL Creatinine 0.56 (0.52-1.04) mg/dL Est GFR (CKD-EPI)AfAm >90 (>60 ml/min/1.73 sqM) Est GFR (CKD-EPI)NonAf >90 (>60 ml/min/1.73 sqM) Glucose 113 H (74-99) mg/dL Calcium 9.2 (8.4-10.2) mg/dL Total Bilirubin 0.4 (0.2-1.3) mg/dL AST 36 (14-36) U/L ALT 38 H (4-34) U/L Alkaline Phosphatase 40 (38-126) U/L C-Reactive Protein 2.2 H (<1.0) mg/dL Total Protein 6.8 (6.3-8.2) g/dL Albumin 3.9 (3.5-5.0) g/dL Urine Color Yellow Urine Appearance Clear (Clear) Urine pH 5.5 (5.0-8.0) Ur Specific [place] 1.029 (1.001-1.035) Urine Protein Trace H (Negative) Urine Glucose (UA) Trace H (Negative) Urine Ketones Negative (Negative) Urine Blood Negative (Negative) Urine Nitrite Negative (Negative) Urine Bilirubin Negative (Negative) Urine Urobilinogen <2.0 (<2.0) mg/dL Ur Leukocyte Esterase Negative (Negative) Disposition <Rachael Charles - Last Filed: 05/16/21 21:05> Is patient prescribed a controlled substance at d/c from ED?: No <Buck Urbina - Last Filed: 05/17/21 02:27> Clinical Impression: Abdominal pain Disposition: HOME SELF-CARE Condition: Good Instructions (If sedation given, give patient instructions): Abdominal Pain in (ED) Referrals: Denzel Haney DO [Primary Care Provider] - 1-2 days Kelsi Kessler DO [Doctor of Osteopathic Medicine] - 1-2 days Abigail Esquivel MD [STAFF PHYSICIAN] - 1-2 days
[2021-05-16 22:02] LABS: Basophils % (A) 0 %; Eosinophils # (A) 0.1 k/uL (0-0.7); Eosinophils % (A) 1 %; HCT 34.4 % (34.0-46.0); Lymphocytes # (A) 1.5 k/uL (1.0-4.8); Lymphocytes % (A) 20 %; MCH 30.7 pg (25.0-35.0); MCHC 34.8 g/dL (31.0-37.0); MCV 88.2 fL (80.0-100.0); Mean Platelet Volume 8.5; Monocytes # (A) 0.3 k/uL (0-1.0); Monocytes % (A) 4 %; Neutrophils # (A) 5.5 k/uL (1.3-7.7); Neutrophils % (A) 73 %; Platelet Count 172 k/uL (150-450); RDW 12.8 % (11.5-15.5); WBC 7.5 k/uL (3.8-10.6)
[2021-05-16 22:13] LABS: Appearance,Urine Clear (Clear); Bilirubin,Urine Negative (Negative); Blood,Urine Negative (Negative); Color,Urine Yellow; Glucose,Urine (UA) Trace (Negative); Ketones,Urine Negative (Negative); Leukocyte Esterase,Urine Negative (Negative); Nitrite,Urine Negative (Negative); PH, Urine 5.5 (5.0-8.0); Protein,Urine Trace (Negative); Specific Gravity,Urine 1.029 (1.001-1.035); Urobilinogen,Urine <2.0 mg/dL (<2.0)
[2021-05-16 22:17] LABS: ALT 38 U/L (4-34); AST 36 U/L (14-36); African American GFR (CKD) >90 (>60 ml/min/1.73 sqM); Albumin 3.9 g/dL (3.5-5.0); Alkaline Phosphatase 40 U/L (38-126); Anion Gap 7 mmol/L; Blood Urea Nitrogen 10 mg/dL (7-17); C Reactive Protein 2.2 mg/dL (<1.0); Calcium 9.2 mg/dL (8.4-10.2); Carbon Dioxide 23 mmol/L (22-30); Chloride 105 mmol/L (98-107); Glucose 113 mg/dL (74-99); Non-African American GFR(CKD) >90 (>60 ml/min/1.73 sqM); Potassium 3.6 mmol/L (3.5-5.1); Sodium 135 mmol/L (137-145); Total Bilirubin 0.4 mg/dL (0.2-1.3); Total Protein 6.8 g/dL (6.3-8.2)
--- NOTE | 2021-05-16 23:38 | US ---
EXAMINATION TYPE: US abdomen APPY DATE OF EXAM: 05/16/2021 COMPARISON: NONE CLINICAL HISTORY: Right lower quadrant pain. RLQ pain. Patient is 16 weeks, 2 days . APPENDIX Is the appendix seen in its entirety from the proximal cecum to distal end: No, appendix not seen at this time by ultrasound. Is there inflammatory changes or free fluid present: None seen. IMPRESSION: Appendix not seen. No sign of appendicitis.
--- NOTE | 2021-05-16 23:42 | US ---
EXAMINATION TYPE: US OB >= 14 wk fetus DATE OF EXAM: 05/16/2021 COMPARISON: None CLINICAL HISTORY: Right lower quadrant pain; 16w pg RLQ pain. Hx C Section, 2 miscarriages. . TECHNIQUE: Transabdominal (TA) GESTATIONAL AGE / DATING Physician Established: (16 weeks/2 days) EDC: 10/29/2021 Dates by LMP: Unknown. Dates by First Scan: This is first scan at this facility. Dates by Current Scan: (16 weeks/2 days) EDC: 10/29/2021 SURVEY IUP: Single PLACENTA: Anterior PREVIA: Limited evaluation, bladder not fully distended. Possible low lying 1.93 cm from os. JESSEE: 13.40 cm Normal CERVICAL LENGTH (transabdominal: norm > 3.0cm): 3.51 cm BIOMETRY PRESENTATION: Variable LIE: Transverse with head maternal R BPD: 3.25 cm 16 weeks / 1 day HC: 12.54 cm 16 weeks / 2 days AC: 10.29 cm 16 weeks / 2 days FL: 2.02 cm 16 weeks / 0 days ESTIMATED WEIGHT IN GRAMS: 147.02 grams ESTIMATED WEIGHT IN LBS/OZ: 0 lbs. 5 oz. WEIGHT PERCENTAGE BASED ON ESTABLISHED DATES: 33.5% HC/AC: 1.22 Normal FL/AC: 19.61 HEART RATE: 153 bpm RHYTHM: Normal IMPRESSION: The ultrasound gestational age is 16 weeks and 2 days. No definite complicating process.
--- NOTE | 2021-05-17 02:03 | US ---
EXAMINATION TYPE: US abdomen limited DATE OF EXAM: 05/17/2021 COMPARISON: NONE, prior appy and OB US CLINICAL HISTORY: attention RUQ/kidney. Pain in RUQ. EXAM MEASUREMENTS: Liver Length: 17.4 cm Gallbladder Wall: 0.22 cm CBD: 0.21 cm Right Kidney: 12.6 x 5.5 x 4.7 cm Limited due to gas. Pancreas: Tail not well seen. Liver: Appears to measure upper limits of normal. Gallbladder: Appears partially contracted. Appears anechoic Evidence for sonographic Snow's sign: Patient feels tenderness throughout abdomen. CBD: Portions seen appear wnl. Right Kidney: Appears minimally enlarged. Small hyperechoic focus seen measuring 0.4 x 0.4 x 0.2 cm. IMPRESSION: No gallstones or dilated ducts. No evidence of renal stone or obstruction. No renal mass.
[2021-05-17] MEDS ORDERED: MAGNESIUM CITRATE 296 ML BOTTLE PO ONE (02:27)
== END 2021-05-17 02:47 | disposition home or self-care (01) ==
LOC: EC 17:38
DX: O26.92 Pregnancy related conditions, unspecified, second trimester (principal); R10.9 Unspecified abdominal pain; F41.9 Anxiety disorder, unspecified; Z3A.16 16 weeks gestation of pregnancy
CPT/HCPCS: 36415; 76705; 76805; 80053; 81003; 85025; 86140; 99284

== ENCOUNTER → 2024-11-29 | Outpatient (CLI) | payer BC ==
--- NOTE | 2024-11-29 10:13 | XR ---
EXAMINATION TYPE: XR lumbar spine 2 or 3V DATE OF EXAM: 11/29/2024 10:04 AM COMPARISON: None CLINICAL INDICATION: Female, 33 years old with history of CHRONIC BILAT LOW BACK PAIN [id number]; PHH, danial brown TECHNIQUE: XR lumbar spine 2 or 3V - Frontal, lateral and coned in L5-S1 lateral views of the spine. FINDINGS: Lucency through the right transverse processes of L4 seen on one view only. No evidence of loss of vertebral body height is seen. There is normal alignment of the lumbar vertebral bodies. No significant degeneration changes throughout the spine. IMPRESSION: Lucency through the right transverse process of L4 possibly representing nondisplaced fracture versus summation of overlapping soft tissues. [facility], , 11/29/2024 10:11 AM
== END | disposition home or self-care (01) ==
LOC: RADXRMAIN 09:38
PROVIDERS: ATTEND Nurse Practitioner Family
DX: M54.42 Lumbago with sciatica, left side (principal); M54.41 Lumbago with sciatica, right side; G89.29 Other chronic pain
CPT/HCPCS: 72100

== ENCOUNTER → 2024-12-01 | Outpatient (CLI) | payer BC ==
[2024-12-01 18:30] LABS: HCT 40.4 % (37.2-46.3); HGB 13.1 g/dL (12.0-15.0); MCH 29.6 pg (27.0-32.0); MCHC 32.4 g/dL (32.0-37.0); MCV 91.4 FL (80.0-97.0); Mean Platelet Volume 10.9 FL (9.5-12.2); NRBC Per 100 WBC 0 X 10*3/uL (0.00-0.01); Platelet Count 167 X 10*3/uL (140-440); RBC 4.42 X 10*6/uL (4.10-5.20); RDW 12.6 % (11.5-14.5); WBC 4.47 X 10*3/uL (4.50-10.00)
[2024-12-01 19:35] LABS: Erythrocyte Sedimentation Rate 7 mm/Hr (0-20)
[2024-12-01 19:45] LABS: ALT 13 U/L (8-44); AST 15 U/L (13-35); Albumin 4.5 g/dL (3.8-4.9); Alkaline Phosphatase 57 U/L (41-126); BUN/Creat Ratio 14.12 Ratio (12.00-20.00); Blood Urea Nitrogen 11.3 mg/dL (9.0-27.0); Calcium 9.3 mg/dL (8.7-10.3); Carbon Dioxide 22.1 mmol/L (21.6-31.8); Chloride 103 mmol/L (96-109); Globulin 2.5 g/dL (1.6-3.3); Glucose 93 mg/dL (70-110); Potassium 4.5 mmol/L (3.5-5.5); Sodium 137 mmol/L (135-145); Total Bilirubin 0.8 mg/dL (0.3-1.2)
== END | disposition home or self-care (01) ==
LOC: LABWHC1 14:34
PROVIDERS: ATTEND Internal Medicine Gastroenterology
DX: R19.4 Change in bowel habit (principal)
CPT/HCPCS: 36415; 80053; 83516; 85027; 85652; 86140

== ENCOUNTER → 2025-01-07 | Outpatient (CLI) | payer BC ==
--- NOTE | 2025-01-13 22:04 | MR ---
MR lumbar spine wo con: 01/07/2025 9:06 AM INDICATION: Patient age:Female; 34 years old; Reason for study: M54.50 low back pain; PHH. COMPARISON: Lumbar spine radiographs 11/29/2024. TECHNIQUE: Multi planar, multi sequence imaging was performed utilizing: T1-weighted, T2-weighted, a nd turbo inversion recovery imaging of the lumbar spine. No gadolinium was given. FINDINGS: The conus medullaris, which terminates at L1, and the distal spinal cord appear unremarkable in regar ds to their signal intensity and morphology. The lumbar vertebral bodies have preserved heights and a lignment. Bone marrow signal is within normal limits. Intervertebral disc signal is maintained. . T12-L1: No significant disc pathology is identified. No significant spinal canal or neural foraminal stenoses. L1-L2: No significant disc pathology is identified. No significant spinal canal or neural foraminal s tenoses. L2-L3: No significant disc pathology is identified. No significant spinal canal or neural foraminal s tenoses. L3-L4: No significant disc pathology is identified. No significant spinal canal or neural foraminal s tenoses. Early symmetric facet arthropathy. L4-L5: Minimal diffuse disc bulge. No significant spinal canal or neural foraminal stenoses. Early sy mmetric facet arthropathy. L5-S1: Subtle right eccentric disc bulge. No significant spinal canal or neural foraminal stenoses. E trinh symmetric facet arthropathy. Other findings: None. IMPRESSION: 1. No definitive evidence of disc herniation or significant spinal canal stenosis. 2. Multilevel disc degeneration with associated osteoarthritic changes. [facility], Workstation: [employer], 01/13/2025 10:02 PM
== END | disposition home or self-care (01) ==
LOC: RADMRIMAIN 08:10
PROVIDERS: ATTEND Family Medicine
DX: M51.360 Other intervertebral disc degeneration, lumbar region with discogenic back pain only (principal); M47.816 Spondylosis without myelopathy or radiculopathy, lumbar region
CPT/HCPCS: 72148